=== PATIENT | male | born 1960 | race African-American/Black ===

== ENCOUNTER 2016-04-17 15:41 | Emergency (ER) | payer OTHER ==
[~2016-04-17] VITALS: Ht 177.8 cm; Wt 103.0 kg
[~2016-04-17 15:41] MED LIST: DIPH25CA6 PO; FAMO-18 PO; IBUP-1542 PO; NAPR-260 PO; TRAM50TA2 PO
[2016-04-17 15:49] VITALS: Ht 177.8 cm; Wt 103.0 kg
[2016-04-17] MEDS ORDERED: HYDR-906 PO (18:08)
--- NOTE | 2016-04-17 18:16 | ERD ---
ER Documentation Chief Complaint Date/Time DATE: 04/17/16 TIME: 18:15 Chief Complaint LEFT PINKY PAIN/INJURY HPI This is a 55-year-old male that presents to the ER with left pinky pain has been on for the last year. Patient states that he jammed his pinky into [employer] bus and that since then he has had pain and numbness and tingling. Patient states that he lost his paperwork for resources and has not seen an orthopedic doctor. He is requesting [place] for his pain and a prescription for [place]field. Patient denies any fevers or chills. ROS 12 point review of systems was done, all negative except per HPI. Medications Home Meds Active Scripts Hydrocodone/Acetaminophen ([place] 5-325 Tablet) 1 Each Tablet, 1 TAB PO Q6H Y for PAIN, #20 TAB Prov:ANTONI CORTES 04/17/16 Naproxen* (Naprosyn*) 500 Mg Tablet, 500 MG PO BID Y for PAIN AND/OR INFLAMMATION, #30 TAB Prov:HAZEL CODY PA-C 02/05/16 Tramadol HCl (Tramadol HCl) 50 Mg Tablet, 50 MG PO Q6 Y for PAIN, #20 TAB Prov:JUSTEN HAHN PUTTY REMOVER 12/06/15 Ibuprofen* (Motrin*) 600 Mg Tab, 600 MG PO Q6H Y for PAIN AND OR ELEVATED TEMP, #30 TAB Prov:JUSTEN HAHN. PUTTY REMOVER 12/06/15 Famotidine* (Pepcid*) 20 Mg Tablet, 20 MG PO BID for 10 Days, TAB Prov:HAZEL CODY PA-C 09/07/15 Diphenhydramine Hcl (Benadryl) 25 Mg Cap, 25 MG PO BID for 5 Days, CAP Prov:HAZEL CODY PA-C 09/07/15 Allergies Allergies: Coded Allergies: No Known Allergy (Unverified , 09/07/15) PMhx/Soc History of Surgery: Yes (left ankle surgery) Anesthesia Reaction: No Hx Neurological Disorder: No Hx Respiratory Disorders: No Hx Cardiac Disorders: Yes (htn ) Hx Psychiatric Problems: No Hx Miscellaneous Medical Probl: No Hx Alcohol Use: No Hx Substance Use: No Hx Tobacco Use: Yes (occasionally) Smoking Status: Current every day smoker Physical Exam Vitals Vital Signs Date Time Temp Pulse Resp B/P Pulse Ox O2 Delivery O2 Flow Rate FiO2 04/17/16 15:49 97.2 84 18 136/82 99 Physical Exam GENERAL: The patient is well developed and appropriate for usual state of health , in no apparent distress. HEENT: Atraumatic. CHEST: Clear to auscultation bilaterally. There are no rales, wheezes or rhonchi. HEART: Regular rate and rhythm. No murmurs, clicks, rubs or gallops. EXTREMITIES: Left fifth digit: Patient feels tingling at the distal portion of the left digit. Patient has normal range of motion of the DIP and PIP joint. He does not have pain of any other digits of his hands. No wrist pain. NEURO: Alert and oriented. Results 24 hrs Current Medications Medications (Trade) Dose Ordered Sig/Carolyn Route PRN Reason Start Time Stop Time Status Last Admin Dose Admin Acetaminophen/ Hydrocodone Bitart ([place] (5/325)) 1 tab ONCE ONCE PO 04/17/16 18:30 04/17/16 18:31 04/17/16 18:15 Procedures/MDM This is a 55-year-old male presents to the ER with left pinky being for the last year. This pain is acute on chronic. Patient will be given one Deerfield here in the ER and was put in a metal splint. He was neurovascularly intact before and after splint application. Patient will be sent home with a prescription for De[place]field. He was given references to go see different orthopedic doctors. Patient is to follow-up with his primary care doctor and get a referral to him as possible. Patient may medical decision making with the patient who understands and agrees with plan. Departure Diagnosis: Primary Impression: Pain of finger Condition: Stable Patient Instructions: Finger Contusion Additional Instructions: Call your primary care doctor TOMORROW for an appointment during the next 1-2 days.See the doctor sooner or return here if your condition worsens before your appointment time. ANTONI CORTES Apr 17, 2016 18:16
[2016-04-17] MEDS ORDERED: HYDROCODONE/APAP (5/325) TAB PO ONE (18:30)
== END 2016-04-17 18:38 | disposition home or self-care (01) ==
LOC: FTE 15:41
DX: M79.645 Pain in left finger(s) (principal); I10 Essential (primary) hypertension; F17.210 Nicotine dependence, cigarettes, uncomplicated
CPT/HCPCS: 29130; Z7502; Z7610